=== PATIENT | male | born 1960 | race Caucasian/White ===

== ENCOUNTER 2018-05-11 19:07 | Inpatient (IN) | payer BC ==
[~2018-05-11] VITALS: Ht 182.9 cm; Wt 63.0 kg
[2018-05-11 20:06] LABS: BASOPHIL (%) 0.4 % (0-1); BASOPHIL COUNT 0.1 K/uL (0-0.1); EOSINOPHIL (%) 0.9 % (0-5); EOSINOPHIL COUNT 0.1 K/uL (0-0.3); HEMATOCRIT 44.3 % (38.0-50.0); HEMOGLOBIN 15.1 G/DL (12.5-16.6); IMMATURE GRANULOCYTE (%) 0.3 % (0.0-0.7); LYMPHOCYTE (%) 4.8 % (15-42); LYMPHOCYTE COUNT 0.6 K/uL (1.0-2.8); MCH 31.3 PG (29.0-34.0); MCHC 34.1 G/DL (30.0-36.0); MCV 91.9 FL (86-99); MONOCYTE (%) 5.2 % (3-12); MONOCYTE COUNT 0.7 K/uL (0-0.8); NEUTROPHIL (%) 88.4 % (45-76); NEUTROPHIL COUNT 11.5 K/uL (1.8-6.4); PLATELET COUNT 257 K/uL (156-360); RBC DIS.WIDTH-CV 12.7 % (11.8-14.6); RBC DIS.WIDTH-SD 42.5 % (39-53); RED BLOOD COUNT 4.82 M/uL (4.00-5.50)
[2018-05-11 20:25] LABS: CHLORIDE 102 mEq/L (99-109); GLUCOSE 96 mg/dL (70-99); POTASSIUM 4.3 mEq/L (3.7-5.4); SODIUM 138 mEq/L (136-147)
[2018-05-11 20:27] LABS: CREATININE 0.8 mg/dL (0.6-1.3)
[2018-05-11 20:28] LABS: UREA NITROGEN (BUN) 8 mg/dL (9-23)
[2018-05-11 20:29] LABS: GFR ESTIMATE (CALCULATED) > 59 mL/min/ (58.99-99999)
[2018-05-11 20:30] LABS: ALBUMIN 3.5 g/dL (3.2-4.8); INTER. NORMALIZED RATIO 1.2
[2018-05-11 20:33] LABS: PTT 28.1 SEC (25-37); TOTAL PROTEIN 6.3 g/dL (6.4-8.3)
[2018-05-11 20:34] LABS: TOTAL BILIRUBIN 0.5 mg/dL (0.0-1.0)
[2018-05-11 20:35] LABS: ALKALINE PHOSPHATASE 111 IU/L (3-129)
[2018-05-11 20:38] LABS: AST (GOT) 45 IU/L (2-34); DIRECT BILIRUBIN 0.2 mg/dL (0.0-0.3)
[2018-05-11 20:39] LABS: ALT (GPT) 53 IU/L (3-49); LIPASE 19 U/L (1.0-51.0)
[2018-05-11 21:25] LABS: APPEARANCE SL.HAZY ((CLEAR)); BILIRUBIN NEGATIVE; BLOOD NEGATIVE; GLUCOSE (STRIP) NEGATIVE; KETONES 20; LEUKOCYTES NEGATIVE; NITRITE NEGATIVE; PROTEIN (STRIP) NEGATIVE; SPECIFIC GRAVITY 1.014 (1.000-1.030); UROBILINOGEN 0.2 MG/DL (0.2-1.0)
[2018-05-11 21:27] LABS: COLOR YELLOW ((YELLOW))
[2018-05-11 21:32] LABS: BACTERIA NONE SEEN /HPF; EPITHELIAL CELLS RARE /HPF; MUCUS TRACE /LPF; RED BLOOD CELLS 0-5 /HPF (0-5); UCUL ADDED? NO; WHITE BLOOD CELLS 0-5 /HPF (0-5)
[2018-05-11] MEDS ORDERED: TEGRETOL100 MG PO (23:53)
[2018-05-11] MEDS ORDERED: COPAXONE40 MG/1 ML SC (23:53)
[2018-05-11] MEDS ORDERED: CLORAZEPATE DI7.5 MG PO (23:54)
[2018-05-11] MEDS ORDERED: TESTOSTERO200 MG/12 IM (23:54)
[2018-05-11] MEDS ORDERED: HYDROCODON-ACE1 EAC8 PO (23:55)
[2018-05-11] MEDS ORDERED: BACLOFEN10 MG PO (23:55)
[2018-05-11] MEDS ORDERED: DAILY VALUE1 EACH PO (23:56)
[2018-05-11] MEDS ORDERED: ADVIL,NUPRIN,M200 MG PO (23:56)
[2018-05-11] MEDS ORDERED: ZYRTEC10 M3 PO (23:56)
[2018-05-11] MEDS ORDERED: MAGNESIUM400 M1 PO (23:56)
[2018-05-11] MEDS ORDERED: VITAMIN D-32000 UNI2 PO (23:56)
[2018-05-11] MEDS ORDERED: B-COMPLEX-VITA1 EACH PO (23:56)
[2018-05-11] MEDS ORDERED: ASHWAGANDHA PO (23:57)
[2018-05-12 03:58] VITALS: BP 99/57
[2018-05-12 08:27] VITALS: BP 127/62
[2018-05-12 11:50] VITALS: BP 113/65
[2018-05-12 20:11] VITALS: BP 111/60
[2018-05-12 23:32] VITALS: BP 101/66
[2018-05-13 08:31] VITALS: BP 115/72
[2018-05-13 11:26] VITALS: BP 113/70
[2018-05-13 16:03] VITALS: BP 104/61
[2018-05-13 19:36] VITALS: BP 128/71
[2018-05-13 23:38] VITALS: BP 121/67
[2018-05-14 08:00] VITALS: BP 116/63
[2018-05-14 08:50] LABS: HEMOGLOBIN 15.1 G/DL (12.5-16.6); MCH 31.5 PG (29.0-34.0); MCHC 33.6 G/DL (30.0-36.0); MCV 93.9 FL (86-99); PLATELET COUNT 299 K/uL (156-360); RBC DIS.WIDTH-CV 13.2 % (11.8-14.6); RBC DIS.WIDTH-SD 45.9 % (39-53); RED BLOOD COUNT 4.79 M/uL (4.00-5.50); WHITE BLOOD COUNT 12.8 K/uL (4.1-10.2)
[2018-05-14 09:05] LABS: ALBUMIN 3.8 g/dL (3.2-4.8); CHLORIDE 105 mEq/L (99-109); POTASSIUM 4.7 mEq/L (3.7-5.4); SODIUM 140 mEq/L (136-147)
[2018-05-14 09:08] LABS: GLUCOSE 111 mg/dL (70-99); TOTAL PROTEIN 6.3 g/dL (6.4-8.3)
[2018-05-14 09:09] LABS: TOTAL BILIRUBIN 0.4 mg/dL (0.0-1.0)
[2018-05-14 09:11] LABS: ALKALINE PHOSPHATASE 109 IU/L (3-129); CREATININE 0.8 mg/dL (0.6-1.3); GFR ESTIMATE (CALCULATED) > 59 mL/min/ (58.99-99999)
[2018-05-14 09:12] LABS: UREA NITROGEN (BUN) 20 mg/dL (9-23)
[2018-05-14 09:13] LABS: AST (GOT) 46 IU/L (2-34); DIRECT BILIRUBIN 0.1 mg/dL (0.0-0.3)
[2018-05-14 09:14] LABS: ALT (GPT) 80 IU/L (3-49)
[2018-05-14 15:20] VITALS: BP 129/74
[2018-05-14 19:23] VITALS: BP 132/87
[2018-05-14 23:17] VITALS: BP 118/69
[2018-05-15 07:31] VITALS: BP 102/64
[2018-05-15 11:43] VITALS: BP 116/63
[2018-05-15 15:46] VITALS: BP 115/66
[2018-05-15 19:49] VITALS: BP 128/67
[2018-05-15 23:14] VITALS: BP 128/77
[2018-05-16 04:41] VITALS: BP 113/72
[2018-05-16 07:58] VITALS: BP 111/63
[2018-05-16 11:25] VITALS: BP 118/65
[2018-05-16] MEDS ORDERED: XANAX0.5 MG PO (17:35)
[2018-05-16] MEDS ORDERED: PEPCID20 MG PO (17:36)
[2018-05-16] MEDS ORDERED: CLARITIN10 M3 PO (17:38)
[2018-05-16] MEDS ORDERED: TRANXENE T-TAB7.5 MG PO (17:38)
[2018-05-16] MEDS ORDERED: TEGRETOL100 MG PO (17:39)
[2018-05-16] MEDS ORDERED: VIBRAMYCIN100 MG PO (17:40)
[2018-05-16] MEDS ORDERED: ASPIR 8181 M1 PO (17:40)
[2018-05-16] MEDS ORDERED: PERCOCET 5/31 TABLET PO (17:41)
[2018-05-16] MEDS ORDERED: HEPARIN SO5000 UNIT4 SC (17:41)
[2018-05-16] MEDS ORDERED: LIORESAL10 MG PO (17:42)
[2018-05-16] MEDS ORDERED: EYE DROP TEARS15 ML BOTH EYES (17:43)
== END 2018-05-16 16:04 | DRG 59 ==
LOC: EME 19:07 → EDOF 05-12 02:19 → 3EAST 05-12 02:19 → EDOF 05-12 03:01 → 3EAST 05-12 03:25 → CANRESERV 05-12 20:39 → 3EAST 05-16 16:04
PROVIDERS: Emergency Medicine; Internal Medicine
DX: G35 Multiple sclerosis (principal); Z68.1 Body mass index [BMI] 19.9 or less, adult; A69.20 Lyme disease, unspecified; Z66 Do not resuscitate; I48.91 Unspecified atrial fibrillation; M25.50 Pain in unspecified joint; K59.00 Constipation, unspecified; F41.9 Anxiety disorder, unspecified; Z88.2 Allergy status to sulfonamides; D72.829 Elevated white blood cell count, unspecified; J44.9 Chronic obstructive pulmonary disease, unspecified; R51 Headache
CPT/HCPCS: 70553; 71045; 74177; 80048; 80076; 81003; 83605; 83690; 85025; 85027; 85610; 85730; 87040; 93005; 93306; 93970; 97530 GO; 97530 GP; 99281; 99285; J0696; J1644; J2543; J2930; J7030; J7040

== ENCOUNTER 2018-05-16 13:34 | Inpatient (IN) | payer BC ==
[~2018-05-16] VITALS: Ht 182.9 cm; Wt 78.2 kg
[~2018-05-16 13:34] MED LIST: ADVIL,NUPRIN,M200 MG PO; ASHWAGANDHA PO; B-COMPLEX-VITA1 EACH PO; BACLOFEN10 MG PO; CLORAZEPATE DI7.5 MG PO; COPAXONE40 MG/1 ML SC; DAILY VALUE1 EACH PO; HYDROCODON-ACE1 EAC8 PO; MAGNESIUM400 M1 PO; TEGRETOL100 MG PO; TESTOSTERO200 MG/12 IM; VITAMIN D-32000 UNI2 PO; ZYRTEC10 M3 PO
[2018-05-16 16:25] VITALS: BP 138/78
[2018-05-16] MEDS ORDERED: XANAX0.5 MG PO (17:35)
[2018-05-16] MEDS ORDERED: PEPCID20 MG PO (17:36)
[2018-05-16] MEDS ORDERED: CLARITIN10 M3 PO (17:38)
[2018-05-16] MEDS ORDERED: TRANXENE T-TAB7.5 MG PO (17:38)
[2018-05-16] MEDS ORDERED: TEGRETOL100 MG PO (17:39)
[2018-05-16] MEDS ORDERED: VIBRAMYCIN100 MG PO (17:40)
[2018-05-16] MEDS ORDERED: ASPIR 8181 M1 PO (17:40)
[2018-05-16] MEDS ORDERED: HEPARIN SO5000 UNIT4 SC (17:41)
[2018-05-16] MEDS ORDERED: PERCOCET 5/31 TABLET PO (17:41)
[2018-05-16] MEDS ORDERED: LIORESAL10 MG PO (17:42)
[2018-05-16] MEDS ORDERED: EYE DROP TEARS15 ML BOTH EYES (17:43)
[2018-05-17 00:30] VITALS: BP 149/76
[2018-05-17 06:05] VITALS: BP 100/55
[2018-05-17 08:44] LABS: THYROTROPIN (TSH) 0.36 MIU/L (0.4-5.5)
[2018-05-17 08:55] LABS: FOLIC ACID (FOLATE) 12.9 NG/ML (5.0-22.0)
[2018-05-17 15:28] VITALS: BP 107/53
[2018-05-18 06:26] VITALS: BP 131/75
[2018-05-18 15:41] VITALS: BP 120/59
[2018-05-19 04:21] VITALS: BP 120/64
[2018-05-19 15:19] VITALS: BP 118/67
[2018-05-20 04:53] VITALS: BP 114/76
[2018-05-20 15:39] VITALS: BP 98/63
[2018-05-21 05:25] VITALS: BP 100/67
[2018-05-21 15:16] VITALS: BP 105/57
[2018-05-22 06:09] VITALS: BP 107/58
[2018-05-22 15:31] VITALS: BP 107/55
[2018-05-23 06:50] VITALS: BP 105/71
[2018-05-23 15:40] VITALS: BP 107/63
[2018-05-24 06:26] VITALS: BP 102/55
[2018-05-24 15:08] VITALS: BP 117/58
[2018-05-24] MEDS ORDERED: POLYETHYLENE GL17 GM PO (20:43)
[2018-05-24] MEDS ORDERED: VIBRAMYCIN100 MG PO (20:43)
[2018-05-24] MEDS ORDERED: PERCOCET 5/31 TABLET PO (20:43)
[2018-05-25 06:27] VITALS: BP 98/53
[2018-05-25 13:01] LABS: CHLORIDE 102 MEQ/L (99-109); CREATININE 0.6 MG/DL (0.6-1.3); GFR ESTIMATE (CALCULATED) > 59 mL/min/ (58.99-99999); GLUCOSE 95 mg/dL (70-99); HEMATOCRIT 50.8 % (38.0-50.0); MCH 31.1 PG (29.0-34.0); MCHC 33.7 G/DL (30.0-36.0); MCV 92.5 FL (86-99); POTASSIUM 4.6 MEQ/L (3.7-5.4); RBC DIS.WIDTH-CV 13.2 % (11.8-14.6); RED BLOOD COUNT 5.49 M/uL (4.00-5.50); SODIUM 137 MEQ/L (136-147); UREA NITROGEN (BUN) 15 mg/dL (9-23); WHITE BLOOD COUNT 5.1 K/uL (4.1-10.2)
[2018-05-25 13:02] LABS: HEMOGLOBIN 17.1 G/DL (12.5-16.6)
[2018-05-25 13:19] LABS: PLAT.SUFFICIENCY ADEQUATE
[2018-05-25 13:24] LABS: PLATELET COUNT 184 K/uL (156-360)
== END 2018-05-25 14:19 | DRG 945 ==
LOC: 3WEST 13:34 → ENRESERV 13:35 → 3WEST 13:35 → ENPENDDIS 05-25 → 3WEST 05-25 14:19
PROVIDERS: Physical Medicine & Rehabilitation Pain Medicine; Psychiatry & Neurology Neurology
PROC: F07M0ZZ Range of Motion and Joint Mobility Treatment of Musculoskeletal System - Whole Body (ICD-10-PCS; principal; 2018-05-16)
DX: R53.1 Weakness (principal); A69.20 Lyme disease, unspecified; G35 Multiple sclerosis; G82.20 Paraplegia, unspecified; I48.91 Unspecified atrial fibrillation; M21.372 Foot drop, left foot; M54.5 Low back pain; R53.81 Other malaise; E73.9 Lactose intolerance, unspecified; G47.00 Insomnia, unspecified; Z79.82 Long term (current) use of aspirin; Z83.79 Family history of other diseases of the digestive system; Z88.2 Allergy status to sulfonamides
CPT/HCPCS: 72156; 80048; 82607; 82746; 84439; 84443; 85027; 97110 GO; 97530 GP; G0283; J1071; J1644; J1650